=== PATIENT | male | born 1980 | race Caucasian/White ===

== ENCOUNTER → 2016-10-07 | Outpatient (CLI) | payer BC ==
[~2016-10-07] MED LIST: AMOX400S3 PO; CYCL10TA6 PO; HYDR1SOL10 PO; LANS30CA63 PO; MAGIC1 PO; METH4PAK PO; OPTIRAY 320 IV PRN; OXYC1TAB3 PO; PRED15SO PO; SERT50TA PO
--- NOTE | 2016-10-07 16:49 | DIAGNOSTIC IMAGING REPORT ---
CT soft tissue neck SOFT TISSUE NECK COMBO CLINICAL HISTORY: HX TONSIL STONES pain. Dysphagia. TECHNIQUE: Transaxial acquisition pre and post intravenous contrast enhancement. Multi axial reformatted images. COMPARISON STUDY: None FINDINGS: Unenhanced study shows no abnormal calcifications. The salivary glands appear symmetric. Postcontrast images demonstrate uniform enhancement characteristics of the parotid as well as submandibular glands. There is no significant cervical adenopathy. Sternocleidomastoid musculature is symmetric. Glottic and subglottic regions are unremarkable. IMPRESSION: Normal study Electronically signed by: Daljit Smyth M.D. 10/07/2016 4:47 PM Dictated Date/Time: 10/07/2016 4:44 PM
== END | disposition home or self-care (01) ==
LOC: C.CTS 16:17
PROVIDERS: ATTEND Internal Medicine Gastroenterology
DX: Z68.28 Body mass index [BMI] 28.0-28.9, adult (principal); M54.2 Cervicalgia

== ENCOUNTER 2016-10-17 15:42 | Emergency (ER) | payer OTHER, BC ==
[~2016-10-17] VITALS: Ht 182.9 cm; Wt 91.7 kg
[2016-10-17 15:56] VITALS: TEMP 36.9; Ht 182.9 cm; Wt 91.7 kg
[2016-10-17] MEDS ORDERED: MoRPHine SULFATE 4 MG/ML 1 ML CARP\\VIAL IV STA (16:25)
[2016-10-17] MEDS ORDERED: ONDANSETRON INJ 2 MG/ML 2 ML VIAL IV STA (16:25)
[2016-10-17] MEDS ORDERED: LANS30CA63 PO (17:12)
[2016-10-17 17:18] LABS: BASO % 0.4 %; BASO ABS # 0.04 K/uL (0-0.2); COMPLETE YES; EOS % 0.7 %; HEMATOCRIT 48.7 % (42-52); IG% 0.3 %; LYMPH ABS # 2.89 K/uL (1.2-3.4); MEAN CORPUSCULAR HEMOGLOBIN 29.8 pg (25-34); MEAN CORPUSCULAR HGB CONC 35.1 g/dl (32-36); MEAN PLATELET VOLUME 10.7 fL (7.4-10.4); MONO % 7.5 %; NEUT % 59.1 %; PLATELET COUNT 207 K/uL (130-400); RED BLOOD COUNT 5.73 M/uL (4.7-6.1); WHITE BLOOD COUNT 9.03 K/uL (4.8-10.8)
[2016-10-17 17:19] LABS: BUN/CREATININE RATIO 9.9 (10-20); CALCIUM 9.2 mg/dl (8.5-10.1); POTASSIUM 3.6 mmol/L (3.5-5.1)
--- NOTE | 2016-10-17 17:49 | EMERGENCY ROOM VISIT NOTE ---
History First contact with patient: 16:14 Chief Complaint: SHOULDER PAIN Stated Complaint: INJURED SHOULDER - SHARP PAINS History of Present Illness The patient is a 36 year old male who presents to the Emergency Room via private vehicle with complaints of "injured shoulder, sharp pains". The patient states that he was at work earlier today, and a doorframe began to fall and he reached out to catch it around 8:30 AM he felt a pull in the left shoulder/neck. He states that he has had neck ailments since a previous injury. He had an MRI performed last week. He follows with Dr. Gaines, and [facility], and is to follow-up with Dr. Boles of pain management/ autism specialist. He rates the pain as a 10/10 in the left trapezius region extending into the left shoulder, left pectoralis major region and into the left scapular region. The patient is left-handed. He also notes that from his bicep on the left to his finger is numb. He notes the pain is sharp in nature. Review of Systems A complete 10-point Review of Systems was discussed with the patient, with pertinent positives and negatives listed in the History of Present Illness. All remaining Review of Systems questions can be considered negative unless otherwise specified. Past Medical/Surgical History Medical Problems: (1) Gastroesophageal reflux disease (2) sinus surgery Family History Patient reports no known family medical history. Social History Smoking Status: Never Smoker Alcohol Use: none Drug Use: none Marital Status: Housing Status: lives with significant other Occupation Status: employed Current/Historical Medications Scheduled Cyclobenzaprine Hcl (Flexeril), 10 MG PO TID Lansoprazole (Prevacid), 30 MG PO DAILY Methylprednisolone (Medrol Dosepak), 0 PO DAILY Scheduled PRN Oxycodone Ir (Roxicodone Ir), 1-2 TAB PO Q4H PRN for Pain Allergies Coded Allergies: No Known Allergies (Unverified , 04/10/15) Physical Exam Vital Signs Date Time Temp Pulse Resp B/P Pulse Ox O2 Delivery O2 Flow Rate FiO2 10/17/16 19:45 60 18 129/80 95 10/17/16 18:32 60 16 144/84 95 Room Air 10/17/16 17:45 60 16 136/84 96 Room Air 10/17/16 15:56 36.9 83 16 98 Room Air Physical Exam VITAL SIGNS - Vital signs and nursing notes were reviewed. Afebrile, nontoxic tachycardic and is saturating well on room air 98%. GENERAL -36-year-old male appearing his stated age who is in no acute distress. Communicates well with provider and answers questions appropriately. SKIN - Without rashes. No petechial rashes. HEAD - NC/AT. NECK - Neck with FROM. There is no C-spine tenderness. There is tenderness to palpation overlying the left superior trapezius muscle extending to the left shoulder and on the medial aspect of the left scapula. There is also tenderness extending into the left pectoralis major region. This is reproducible with palpation. LUNGS - Chest wall symmetric without accessory muscle use, intercostals retractions, or central cyanosis. Normal vesicular breath sounds CTA B/L. No wheezes, rales, or rhonchi appreciated. CARDIAC - RRR with S1/S2. No murmur, rubs, or gallops appreciated. EXTREMITIES - No clubbing or peripheral cyanosis. No pretibial edema present. Patient is vascularly intact in left upper extremity. He has decreased rehab aid strength on the left compared to right. He has diminished bicipital reflex on the left. Medical Decision & Procedures Laboratory Results 10/17/16 16:49 Red Blood Count 5.73, Mean Corpuscular Volume 85.0, Mean Corpuscular Hemoglobin 29.8, Mean Corpuscular Hemoglobin Concent 35.1, Mean Platelet Volume 10.7, Neutrophils (%) (Auto) 59.1, Lymphocytes (%) (Auto) 32.0, Monocytes (%) (Auto) 7.5, Eosinophils (%) (Auto) 0.7, Basophils (%) (Auto) 0.4, Neutrophils # (Auto) 5.33, Lymphocytes # (Auto) 2.89, Monocytes # (Auto) 0.68, Eosinophils # (Auto) 0.06, Basophils # (Auto) 0.04 10/17/16 16:49 Test 10/17/16 16:49 10/17/16 16:51 White Blood Count 9.03 K/uL (4.8-10.8) Red Blood Count 5.73 M/uL (4.7-6.1) Hemoglobin 17.1 g/dL (14.0-18.0) Hematocrit 48.7 % (42-52) Mean Corpuscular Volume 85.0 fL (80-100) Mean Corpuscular Hemoglobin 29.8 pg (25-34) Mean Corpuscular Hemoglobin Concent 35.1 g/dl (32-36) Platelet Count 207 K/uL (130-400) Mean Platelet Volume 10.7 fL (7.4-10.4) Neutrophils (%) (Auto) 59.1 % Lymphocytes (%) (Auto) 32.0 % Monocytes (%) (Auto) 7.5 % Eosinophils (%) (Auto) 0.7 % Basophils (%) (Auto) 0.4 % Neutrophils # (Auto) 5.33 K/uL (1.4-6.5) Lymphocytes # (Auto) 2.89 K/uL (1.2-3.4) Monocytes # (Auto) 0.68 K/uL (0.11-0.59) Eosinophils # (Auto) 0.06 K/uL (0-0.5) Basophils # (Auto) 0.04 K/uL (0-0.2) RDW Standard Deviation 39.3 fL (36.4-46.3) RDW Coefficient of Variation 12.7 % (11.5-14.5) Immature Granulocyte % (Auto) 0.3 % Immature Granulocyte # (Auto) 0.03 K/uL (0.00-0.02) Anion Gap 6.0 mmol/L (3-11) Est Creatinine Clear Calc Drug Dose 112.1 ml/min Estimated GFR () 111.7 Estimated GFR (Non- 96.4 BUN/Creatinine Ratio 9.9 (10-20) Calcium Level 9.2 mg/dl (8.5-10.1) Bedside D-Dimer 117 ng/mlFEU (0-450) Bedside Troponin I 0.000 ng/ml (0-0.045) Medications Administered Medications (Trade) Dose Ordered Sig/Ida Route Start Time Stop Time Status Last Admin Dose Admin Morphine Sulfate (MoRPHine SULFATE INJ) 4 mg NOW STAT IV 10/17/16 16:25 10/17/16 16:28 DC 10/17/16 16:51 4 MG Ondansetron HCl (Zofran Inj) 4 mg NOW STAT IV 10/17/16 16:25 10/17/16 16:28 DC 10/17/16 16:51 4 MG Ketorolac Tromethamine (Toradol Inj) 30 mg NOW STAT IV 10/17/16 18:00 10/17/16 18:02 DC 10/17/16 18:30 30 MG Dexamethasone Sodium Phosphate (Decadron Inj) 10 mg NOW STAT IV 10/17/16 18:00 10/17/16 18:02 DC 10/17/16 18:30 10 MG Oxycodone HCl (Roxicodone Immediate Rel 5MG Home Pack) 1 homepack UD STAT PO 10/17/16 18:55 10/17/16 18:57 DC 10/17/16 19:48 1 HOMEPACK Cyclobenzaprine HCl (FLEXERIL 10MG Home Pack) 1 homepack UD STAT PO 10/17/16 18:55 10/17/16 18:57 DC 10/17/16 19:48 [facility] Patient was seen and evaluated as above. After obtaining a thorough history and physical examination IV access was initiated and the above workup was performed. I elected to obtain IV access as the patient noted that he was experiencing left anterior chest pain and left scapular pain which began after the initial injury. I suspect that this is all related to the left trapezius however I believe that workup is pertinent. He was given morphine and Zofran for his pain. CBC reveals no leukocytosis or anemia. D-dimer negative. CMP reveals point care troponin of 0, and otherwise unremarkable study. He recently had an MRI, and although I didn't believe an MRI would be beneficial at this time the patient noted that he cannot use a closed MRI as he is very claustrophobic, and even medication is not beneficial to help and sedation. I offered this to him many times and stated that I thought it be beneficial but he declined the MRI. I did elect to discuss the case with the attending, and subsequently the on-call autism specialist for [facility]. I spoke with Dimple Ruff at 5:11 PM on 10/17/2016. We discussed the case, and she recommended that I reevaluate the patient after providing him pain medication to identify of his strength and reflexes improved. We also discussed an MRI may be obtained. I reevaluated the patient after the medication and his strength did improve, specifically his rehab aid strength, and his left bicipital reflex returned normal. I suspect that the weakness was likely secondary to guarding from the pain. I then discussed the case with my attending and called Dimple Speedy again as the patient noted he was unable to have a closed MRI. We discussed that the patient is likely nonsurgical at this time, and is likely an acute exacerbation of his chronic neck pain. I do believe he can follow-up in the outpatient setting, and if a repeat MRI needs to be obtained at that time it may be done by do not believe that be beneficial at this time. His neurologic deficits improved with pain medication, and I do not suspect any true neurologic emergency at this time. The patient declined MRI. The patient was given warfarin and Zofran followed by Toradol for his pain. He did note some relief of this pain. He was discharged home with a prescription for Medrol Dosepak which was recommended by Lucrecia Speedy, he was also provided Flexeril and pain medication, specifically oxycodone immediate release. He has no allergies. He is to follow-up with Dr. Boles, and is to call their office to request sooner follow-up. He was instructed to return if weakness would persist or worsen. He was educated upon worrisome symptoms return, had questions prior to discharge and was discharged home in good condition. He is to call his workman's compensation individual regarding today's visit further evaluation and management. I informed the patient that I would not be able to clear him to go back to work. EKG normal sinus rhythm. In evaluation treatment this patient the following differential diagnoses were entertained: ME, PE, left shoulder pain, strain of the trapezius, acute on chronic left shoulder pain, among others. Impression Primary Impression: Trapezius strain Additional Impression: Left shoulder pain Departure Information Dispostion Home / Self-Care Condition GOOD Prescriptions Methylprednisolone (MEDROL DOSEPAK) 4 Mg Pramod 0 PO DAILY, #1 PKT Prov: Damien Gama PA-C 10/17/16 Cyclobenzaprine Hcl (FLEXERIL) 10 Mg Tab 10 MG PO TID for 5 Days, #15 TAB Prov: Damien aGma PA-C 10/17/16 Oxycodone Ir (Roxicodone Ir) 5 Mg Tab 1-2 TAB PO Q4H Y for Pain, #15 TAB For Initial Treatment Prov: Damien Gama PA-C 10/17/16 Referrals Daljit Vickers M.D. (PCP) Patient Instructions My [facility] Additional Instructions You have been treated in the Emergency Department for Shoulder Pain. You have received pain medicine in the emergency department which impairs your ability to operate a vehicle. It is illegal for you to drive after receiving these medicines. You have been prescribed OxyIR to be used for pain control. This is a narcotic medication. You cannot drive or consume alcohol while on this medicine. This medicine should only be used for pain that cannot be controlled with over-the- counter pain medicines. You have been prescribed a Medrol Dosepak. Take this medication as prescribed. You should take the COMPLETE 6-day course of this medication. This is an anti- inflammatory medicine that will help to minimize your symptoms. You have been prescribed Flexeril (cyclobenzaprine) 1 tabs orally, three times per day. Do NOT exceed 30 mg (6 tabs) per day. Take your first dose at bedtime as it can make you drowsy. Always take all medications as prescribed. For pain control, you can use the following [id number] medicines (if >12 yo): - Regular strength (325mg/tab) Tylenol (acetaminophen) 2 tabs every 4-6 hours as needed. Do not exceed 12 tablets in a 24 hour period. Avoid taking more than 3 grams (3000 mg) of Tylenol per day. This includes any other sources of acetaminophen you may take on a regular basis. - Regular strength (200 mg/tab) Advil (ibuprofen) 1-2 tabs every 4-6 hours as needed. Do not exceed a dose of 3200 mg per day. If this is a recent injury (<24 hrs), ice can be applied to the area of pain for the first 3 days to help decrease pain and inflammation. Please call your employer to discuss follow-up with the Workmen's Compensation individual for clearance to return to work. Please call Dr. Boles, the pain management autism specialist you're to follow up with in the beginning of October first thing Thursday morning. Please call them to request sooner follow-up. Please return here if worsening of your symptoms. Return to the Emergency Department if your current symptoms worsen despite treatment course outlined above, or if you develop any of the following symptoms : intractable pain despite aforementioned treatment course or new onset of numbness or tingling of the arm. Please return to the emergency department with any new/concerning symptoms or worsening of your numbness/tingling as we discussed. Thank you for your time. Problem Qualifiers
[2016-10-17] MEDS ORDERED: KETOROLAC TROMETHAMINE 30 MG/ML VIAL IV STA (18:00)
[2016-10-17] MEDS ORDERED: DEXAMETHASONE SOD INJ 10 MG/ML VIAL IV STA (18:00)
[2016-10-17] MEDS ORDERED: FLEXERIL HOME PACK 10 MG VIAL PO STA (18:55)
[2016-10-17] MEDS ORDERED: OXYCODONE IR HOME PACK PO STA (18:55)
[2016-10-17] MEDS ORDERED: CYCL10TA6 PO (18:58)
[2016-10-17] MEDS ORDERED: OXYC1TAB3 PO (18:58)
[2016-10-17] MEDS ORDERED: METH4PAK PO (18:58)
[2016-10-17 19:45] VITALS: BP 129/80; PULSE 60; O2SAT 95
[2016-11-07] MEDS ORDERED: SERT50TA PO (07:01)
== END 2016-10-17 19:53 | disposition home or self-care (01) ==
LOC: C.EDB 15:42 → C.EDD 19:53
DX: S46.912A Strain of unspecified muscle, fascia and tendon at shoulder and upper arm level, left arm, initial encounter (principal); X58.XXXA Exposure to other specified factors, initial encounter; K21.9 Gastro-esophageal reflux disease without esophagitis; Z79.899 Other long term (current) drug therapy; Z98.890 Other specified postprocedural states

== ENCOUNTER → 2016-11-04 | Outpatient (CLI) | payer OTHER, BC ==
[~2016-11-04] MED LIST changes: -CYCL10TA6 PO; -METH4PAK PO; -OPTIRAY 320 IV PRN; -OXYC1TAB3 PO
--- NOTE | 2016-11-04 12:45 | DIAGNOSTIC IMAGING REPORT ---
CERVICAL SPINE MRI HISTORY: Cervical radiculopathy. CERVICAL RADICULOPATHY/PT WILL HAVE DONN VAN TECHNIQUE: Multiplanar multisequence MRI of the cervical spine was performed without the use of contrast. COMPARISON STUDY: None. FINDINGS: Signal characteristics of the vertebral bodies as well as intervertebral this are unremarkable. Signal characteristics of the cervical cord are unremarkable. C2-C3: No significant central canal or neural foraminal narrowing. C3-C4: No significant central canal or neural foraminal narrowing. C4-C5: No significant central canal or neural foraminal narrowing. C5-C6: No significant central canal or neural foraminal narrowing. C6-C7: No significant central canal or neural foraminal narrowing. C7-T1: No significant central canal or neural foraminal narrowing. IMPRESSION: Normal study Electronically signed by: Daljit Smyth M.D. 11/04/2016 12:43 PM Dictated Date/Time: 11/04/2016 12:42 PM
== END | disposition home or self-care (01) ==
LOC: C.MRIBC 11:37
PROVIDERS: ATTEND Pain Medicine Interventional Pain Medicine
DX: M54.2 Cervicalgia (principal)

== ENCOUNTER → 2016-11-04 | Outpatient (CLI) | payer BC, OTHER ==
[2016-11-04 17:15] LABS: BASO % 0.9 %; BASO ABS # 0.06 K/uL (0-0.2); COMPLETE YES; EOS % 1.3 %; HEMATOCRIT 46.3 % (42-52); IG% 0.3 %; LYMPH % 35.4 %; LYMPH ABS # 2.44 K/uL (1.2-3.4); MEAN CELL VOLUME 87.9 fL (80-100); MEAN CORPUSCULAR HEMOGLOBIN 28.8 pg (25-34); MEAN CORPUSCULAR HGB CONC 32.8 g/dl (32-36); MEAN PLATELET VOLUME 11.2 fL (7.4-10.4); MONO % 9.3 %; NEUT % 52.8 %; PLATELET COUNT 236 K/uL (130-400); RED BLOOD COUNT 5.27 M/uL (4.7-6.1); WHITE BLOOD COUNT 6.89 K/uL (4.8-10.8)
[2016-11-04 17:21] LABS: POTASSIUM 4.3 mmol/L (3.5-5.1)
[2016-11-04 17:23] LABS: PARTIAL THROMBOPLASTIN RATIO 1.1; PROTHROMBIN TIME (PATIENT) 10.7 SECONDS (9.0-12.0)
== END | disposition home or self-care (01) ==
LOC: C.LABBC 11:44
DX: Z01.818 Encounter for other preprocedural examination (principal)

== ENCOUNTER 2016-11-07 20:29 | Emergency (ER) | payer BC, OTHER ==
[~2016-11-07] VITALS: Ht 182.9 cm; Wt 92.9 kg
[~2016-11-07 20:29] MED LIST changes: -ACETAMINOPHEN/HYDROCODONE ELIX 15 ML/CUP UDP ONE; -ACETAMINOPHEN/HYDROCODONE ELIX 15 ML/CUP UDP PO PRN; -AMOX400S3 PO; -ATROPINE SULFATE 0.1 MG/ML 5ML SYR IV PRN; -BACITRACIN/POLYMYX B OPH OINT 3.5 GM TUBE ONE; -BACITRACIN/POLYMYXIN B OINT 15 GM TUBE EXT ONE; -DEXAMETHASONE SOD INJ 4 MG/ML VIAL ONE; -EpHEDrine SULFATE INJ 50 MG/ML AMP IV PRN; -FENTANYL CITRATE INJ 50 MCG/1 ML 2 ML VIAL ONE; -HYDR1SOL10 PO; -LACTATED RINGER'S 1000ML 1,000 ML IV SCH; -LIDOCAINE 2% JELLY 5 ML TUBE EXT ONE; -LIDOCAINE HCL 2% 2 ML VIAL (20MG/ML) ONE; -MAGIC1 PO; -ONDANSETRON INJ 2 MG/ML 2 ML VIAL IV PRN; -ONDANSETRON INJ 2 MG/ML 2 ML VIAL ONE; -PRED15SO PO; -PROPOFOL IV EMULSION 10 MG/ML 20 ML VIAL IV ONE; -SUCCINYLCHOLINE CHLORIDE 20 MG/ML 10 ML VIAL IV ONE
[2016-11-07 20:31] VITALS: TEMP 36.9; Ht 182.9 cm; Wt 92.9 kg
[2016-11-07] MEDS ORDERED: SODIUM CHLORIDE 0.9% 1000ML 1,000 ML IV STA (21:06)
--- NOTE | 2016-11-07 21:10 | EMERGENCY ROOM VISIT NOTE ---
History Report prepared by Michelle: Huan Miranda Under the Supervision of: Dr. Harpal Garza D.O. First contact with patient: 20:56 Chief Complaint: THROAT PAIN/INJURY Stated Complaint: TONSILECTOMY TODAY,CAN'T SWALLOW,PAIN History of Present Illness The patient is a 36 year old male who presents to the Emergency Room with complaints of persistent throat pain that started earlier today. The patient had a tonsillectomy this morning and has been having worsening discomfort since the procedure. The patient states that he is having difficulty speaking, swallowing, eating and drinking. He notes he has not been able to take his medications including antibiotics and Prednisone because he cannot swallow the pills. The patient denies bleeding or fevers at this time. Source of History: patient Onset: earlier today Position: throat Timing: other (persistent ) Associated Symptoms: No fevers Note: Other associated symptoms: difficulty speaking, swallowing, eating and drinking Denies: bleeding Review of Systems See HPI for pertinent positives & negatives. A total of 10 systems reviewed and were otherwise negative. Past Medical & Surgical Medical Problems: (1) Gastroesophageal reflux disease (2) sinus surgery Family History Patient reports no known family medical history. Social History Smoking Status: Never Smoker Alcohol Use: none Drug Use: none Marital Status: Housing Status: lives with significant other Occupation Status: employed Current/Historical Medications Scheduled Lansoprazole (Prevacid), 30 MG PO QAM Sertraline (Zoloft), 1 TAB PO DAILY Scheduled PRN Diphenhy/Alum/Mag/Sucralfa (Magic Swizzle - Diphenhy/Alum/Mag/Sucralfa), 1 TSP PO Q4H PRN for Pain Allergies Coded Allergies: No Known Allergies (Unverified , 11/07/16) Physical Exam Vital Signs Date Time Temp Pulse Resp B/P Pulse Ox O2 Delivery O2 Flow Rate FiO2 11/08/16 00:02 72 18 127/72 97 11/07/16 22:06 67 18 127/77 97 Room Air 11/07/16 20:39 98 Room Air 11/07/16 20:31 36.9 69 18 140/90 96 Room Air Physical Exam GENERAL: Patient is awake alert somewhat anxious appearing and uncomfortable EYES: The conjunctivae are clear. The pupils are round and reactive. EARS, NOSE, MOUTH AND THROAT: The nose is without any evidence of any deformity. Mucous membranes are moist, there was a surgical site noted in posterior pharynx, there was good eschar at the posterior tonsillectomy bed, no bleeding was noted. There was no significant swelling. NECK: The neck is nontender and supple. RESPIRATORY: Normal respiratory effort is noted there is no evidence of wheezing rhonchi or rales CARDIOVASCULAR: Regular rate and rhythm noted there no murmurs rubs or gallops normal S1 normal S2 GASTROINTESTINAL: The abdomen is soft. Bowel sounds are present in all quadrants. Abdomen is nontender MUSCULOSKELETAL/EXTREMITIES: There is no evidence of gross deformity full range of motion is noted in the hips and shoulders SKIN: There is no obvious evidence of any rash. There are no petechiae, pallor or cyanosis noted. NEUROLOGIC: Patient is awake alert and oriented x3 Medical Decision & Procedures Laboratory Results 11/07/16 21:15 Red Blood Count 5.34, Mean Corpuscular Volume 85.6, Mean Corpuscular Hemoglobin 29.8, Mean Corpuscular Hemoglobin Concent 34.8, Mean Platelet Volume 10.4, Neutrophils (%) (Auto) 87.8, Lymphocytes (%) (Auto) 6.4, Monocytes (%) (Auto) 5.4, Eosinophils (%) (Auto) 0.0, Basophils (%) (Auto) 0.1, Neutrophils # (Auto) 12.81, Lymphocytes # (Auto) 0.93, Monocytes # (Auto) 0.79, Eosinophils # (Auto) 0.00, Basophils # (Auto) 0.01 11/07/16 21:15 Test 11/07/16 21:15 White Blood Count 14.58 K/uL (4.8-10.8) Red Blood Count 5.34 M/uL (4.7-6.1) Hemoglobin 15.9 g/dL (14.0-18.0) Hematocrit 45.7 % (42-52) Mean Corpuscular Volume 85.6 fL (80-100) Mean Corpuscular Hemoglobin 29.8 pg (25-34) Mean Corpuscular Hemoglobin Concent 34.8 g/dl (32-36) Platelet Count 243 K/uL (130-400) Mean Platelet Volume 10.4 fL (7.4-10.4) Neutrophils (%) (Auto) 87.8 % Lymphocytes (%) (Auto) 6.4 % Monocytes (%) (Auto) 5.4 % Eosinophils (%) (Auto) 0.0 % Basophils (%) (Auto) 0.1 % Neutrophils # (Auto) 12.81 K/uL (1.4-6.5) Lymphocytes # (Auto) 0.93 K/uL (1.2-3.4) Monocytes # (Auto) 0.79 K/uL (0.11-0.59) Eosinophils # (Auto) 0.00 K/uL (0-0.5) Basophils # (Auto) 0.01 K/uL (0-0.2) RDW Standard Deviation 39.6 fL (36.4-46.3) RDW Coefficient of Variation 12.7 % (11.5-14.5) Immature Granulocyte % (Auto) 0.3 % Immature Granulocyte # (Auto) 0.04 K/uL (0.00-0.02) Anion Gap 6.0 mmol/L (3-11) Est Creatinine Clear Calc Drug Dose 112.1 ml/min Estimated GFR () 111.7 Estimated GFR (Non- 96.4 BUN/Creatinine Ratio 15.0 (10-20) Calcium Level 9.3 mg/dl (8.5-10.1) Total Bilirubin 0.6 mg/dl (0.2-1) Direct Bilirubin 0.2 mg/dl (0-0.2) Aspartate Amino Transf (AST/SGOT) 7 U/L (15-37) Alanine Aminotransferase (ALT/SGPT) 34 U/L (12-78) Alkaline Phosphatase 63 U/L (45-117) Total Protein 7.3 gm/dl (6.4-8.2) Albumin 4.3 gm/dl (3.4-5.0) Laboratory results per my review. Medications Administered Medications (Trade) Dose Ordered Sig/Ida Route Start Time Stop Time Status Last Admin Dose Admin Sodium Chloride (Nss 1000ml) 1,000 ml @ 999 mls/hr Q1H1M STAT IV 11/07/16 21:06 11/07/16 22:06 DC 11/07/16 21:16 999 MLS/HR Morphine Sulfate (MoRPHine SULFATE INJ) 4 mg Q15M PRN IV 11/07/16 21:15 11/21/16 21:14 11/07/16 21:17 4 MG Ondansetron HCl (Zofran Odt) 4 mg ONE ONCE PO 11/07/16 21:15 11/07/16 21:16 DC 11/07/16 21:17 4 MG Dexamethasone Sodium Phosphate (Decadron Inj) 10 mg NOW ONCE IV 11/07/16 21:15 11/07/16 21:16 DC 11/07/16 21:16 10 MG Acetaminophen/ Hydrocodone Bitart (Lortab Elixir) 15 ml NOW STAT PO 11/07/16 22:54 11/07/16 22:56 DC 11/07/16 23:15 15 ML ED Course 2103: The patient was evaluated in room A10. A complete history and physical examination were performed. 2105: Ordered NSS 1000 ml @ 999 mls/hr IV. 2114: Ordered Decadron Inj 10 mg IV, Zofran Odt 4 mg PO, Morphine Sulfate 4 mg IV. 2247: At this time, I reevaluated the patient and he was not feeling any better. 2253: Ordered Lortab Elixir 15 ml PO. 2: Upon reevaluation, the patient is resting more comfortably. I discussed the results and treatment plan with him. He verbalized agreement of the treatment plan. The patient was discharged home. Medical Decision Differential diagnosis: Etiologies such as post-op bleeding, post-op pain, viral syndrome, tonsillitis, streptococcal pharyngitis, mononucleosis, peritonsillar abscess, retropharyngeal abscess, otitis, pneumonia, influenza, as well as others were entertained. Nursing notes reviewed. The patient is a 36-year-old male who presented to the emergency department for evaluation of throat pain. The patient had his tonsils out recently. He had a good eschar noted over the post tonsillectomy bed. He also did not have any bleeding or significant swelling. The patient was able to tolerate his secretions. He was treated with IV fluids IV pain medicine as well as magic's wasn't. I discussed the patient's laboratory results with him. He is still one day status post tonsillectomy and I do feel that his pain at this time can be managed as an outpatient. He was encouraged to rest and avoid any strenuous activity. He was also encouraged to continue all medications as prescribed. He was also encouraged to follow-up with his primary your nose and throat physician tomorrow by phone return to the emergency department immediately symptoms change worsen or the need arises. Impression Primary Impression: Post-op pain Scribe Attestation The scribe's documentation has been prepared under my direction and personally reviewed by me in its entirety. I confirm that the note above accurately reflects all work, treatment, procedures, and medical decision making performed by me. Departure Information Dispostion Home / Self-Care Prescriptions Diphenhy/Alum/Mag/Sucralfa (Magic Swizzle - Diphenhy/Alum/Mag/Sucralfa) Susp 1 TSP PO Q4H Y for Pain, #200 ML 1 Refill 30ML DIPHENHYDRAMINE SLN 12.5/5ML 60ML MAALOX 4GM CARAFATE SWISH AND SPIT Prov: Harpal Garza, DO 11/07/16 Referrals No Doctor, Assigned (PCP) Forms HOME CARE DOCUMENTATION FORM, IMPORTANT VISIT INFORMATION, WORK / SCHOOL INSTRUCTIONS Patient Instructions [facility], Tonsillectomy Adenoidectomy After Additional Instructions Call the ear nose throat physician in the morning to schedule a follow-up appointment. Continue all medications as prescribed. Return to the emergency department immediately if symptoms change worsen or the need arises.
[2016-11-07] MEDS ORDERED: ONDANSETRON 4MG OD TAB PO ONE (21:15)
[2016-11-07] MEDS ORDERED: MoRPHine SULFATE 4 MG/ML 1 ML CARP\\VIAL IV PRN (21:15)
[2016-11-07] MEDS ORDERED: DEXAMETHASONE SOD INJ 10 MG/ML VIAL IV ONE (21:15)
[2016-11-07 21:22] LABS: BASO % 0.1 %; BASO ABS # 0.01 K/uL (0-0.2); COMPLETE YES; HEMATOCRIT 45.7 % (42-52); IG% 0.3 %; LYMPH % 6.4 %; LYMPH ABS # 0.93 K/uL (1.2-3.4); MEAN CELL VOLUME 85.6 fL (80-100); MEAN CORPUSCULAR HEMOGLOBIN 29.8 pg (25-34); MEAN CORPUSCULAR HGB CONC 34.8 g/dl (32-36); MEAN PLATELET VOLUME 10.4 fL (7.4-10.4); MONO % 5.4 %; NEUT % 87.8 %; PLATELET COUNT 243 K/uL (130-400); RED BLOOD COUNT 5.34 M/uL (4.7-6.1); WHITE BLOOD COUNT 14.58 K/uL (4.8-10.8)
[2016-11-07 21:40] LABS: CALCIUM 9.3 mg/dl (8.5-10.1); POTASSIUM 4.2 mmol/L (3.5-5.1)
[2016-11-07] MEDS ORDERED: MAGIC SWIZZLE PO STA (22:54)
[2016-11-07] MEDS ORDERED: ACETAMINOPHEN/HYDROCODONE ELIX 15 ML/CUP UDP PO STA (22:54)
[2016-11-07] MEDS ORDERED: MAGIC MOUTHWASH PO PRN (23:45)
[2016-11-07] MEDS ORDERED: MAGIC1 PO (23:49)
[2016-11-08 00:02] VITALS: BP 127/72; PULSE 72; O2SAT 97
== END 2016-11-08 00:03 | disposition home or self-care (01) ==
LOC: C.EDB 20:29 → C.EDA 11-08 00:03
DX: G89.18 Other acute postprocedural pain (principal); Z90.89 Acquired absence of other organs; K21.9 Gastro-esophageal reflux disease without esophagitis; Z98.890 Other specified postprocedural states; Z79.899 Other long term (current) drug therapy

== ENCOUNTER → 2016-11-07 | Day surgery (SDC) | payer BC, OTHER ==
[2016-10-29 13:20] VITALS: Ht 182.9 cm; Wt 93.2 kg
[~2016-11-07] VITALS: Ht 182.9 cm; Wt 93.2 kg
[~2016-11-07] MED LIST changes: +ACETAMINOPHEN/HYDROCODONE ELIX 15 ML/CUP UDP ONE; +ACETAMINOPHEN/HYDROCODONE ELIX 15 ML/CUP UDP PO PRN; +ATROPINE SULFATE 0.1 MG/ML 5ML SYR IV PRN; +BACITRACIN/POLYMYX B OPH OINT 3.5 GM TUBE ONE; +BACITRACIN/POLYMYXIN B OINT 15 GM TUBE EXT ONE; +DEXAMETHASONE SOD INJ 4 MG/ML VIAL ONE; +EpHEDrine SULFATE INJ 50 MG/ML AMP IV PRN; +FENTANYL CITRATE INJ 50 MCG/1 ML 2 ML VIAL ONE; +LACTATED RINGER'S 1000ML 1,000 ML IV SCH; +LIDOCAINE 2% JELLY 5 ML TUBE EXT ONE; +LIDOCAINE HCL 2% 2 ML VIAL (20MG/ML) ONE; +ONDANSETRON INJ 2 MG/ML 2 ML VIAL IV PRN; +ONDANSETRON INJ 2 MG/ML 2 ML VIAL ONE; +PROPOFOL IV EMULSION 10 MG/ML 20 ML VIAL IV ONE; +SUCCINYLCHOLINE CHLORIDE 20 MG/ML 10 ML VIAL IV ONE
--- NOTE | 2016-11-07 07:45 | History & Physical Bridge - SC ---
H&P Re-Evaluation Bridge Note: I have examined the patient, reviewed the History & Physical and in the interval since the performance of the History & Physical I have noted the following changes of clinical significance: No changes noted
--- NOTE | 2016-11-07 08:29 | [facility] Operative Report ---
Operative Report Operative Date November 07, 2016. Pre-Operative Diagnosis Chronic Tonsillitis Post-Operative Diagnosis Same Procedure(s) Performed Tonsillectomy Surgeon Dr. Kay Badger Distiller Operator Surgeon(s) None Estimated Blood Loss 0 ml Findings 1. 2+ CRYPTIC TONSILS WITH TONSILLITHS R>L Specimens A.) Right Tonsil B.) Left Tonsil I attest to the content of the Intraoperative Record and any orders documented therein. Any exceptions are noted below.
--- NOTE | 2016-11-07 08:31 | Discharge Instructions ---
Discharge Instructions Date of Service November 07, 2016. Admission Reason for Admission: Chronic Tonsillitis Discharge Discharge Diagnosis / Problem: SAME Discharge Goals Goal(s): Therapeutic intervention Activity Recommendations Activity Limitations: as noted below LIGHT ACTIVITY FOR 2WEEKS; NO DRIVING WHILE ON LORTAB . Current Hospital Diet Patient's current hospital diet: Full Liquid Diet Discharge Diet Recommended Diet: Full Liquid Diet Diet Texture: Mechanical Soft (ground) Procedures Procedures Performed: Tonsillectomy Pending Studies Studies pending at discharge: no Medical Emergencies . Who to Call and When: Medical Emergencies: If at any time you feel your situation is an emergency, please call 911 immediately. . Non-Emergent Contact Non-Emergency issues call your: Surgeon . . "Provider Documentation" section prepared by Russell Kay. . VTE Core Measure Inpt VTE Proph given/why not?: SCD's
[2016-11-07] MEDS: FENTANYL CITRATE INJ 50 MCG/1 ML 2 ML VIAL IV PRN ×2 (09:02→09:13)
--- NOTE | 2016-11-07 09:10 | Anesthesia Progress Nt - [facility] ---
Anesthesia Post Op Note Date & Time November 07, 2016 at 09:10 Vital Signs Vital Signs Past 12 Hours Date Time Temp Pulse Resp B/P Pulse Ox O2 Delivery O2 Flow Rate FiO2 11/07/16 08:48 37.5 71 16 170/119 99 Humidified Oxygen 6 Mask 11/07/16 07:01 36.8 60 20 145/94 99 Room Air Notes Mental Status: alert / awake / arousable, participated in evaluation Pt Amnestic to Procedure: Yes Nausea / Vomiting: adequately controlled Pain: adequately controlled Airway Patency, RR, SpO2: stable & adequate BP & HR: stable & adequate Hydration State: stable & adequate Anesthetic Complications: no major complications apparent
[2016-11-07 09:50] VITALS: TEMP 36.7
[2016-11-07 10:15] VITALS: BP 125/73; PULSE 58; O2SAT 95
--- NOTE | 2016-11-07 10:19 | OPERATIVE REPORT ---
DATE OF OPERATION: 11/07/2016 PREOPERATIVE DIAGNOSIS: Chronic tonsillitis. POSTOPERATIVE DIAGNOSIS: Chronic tonsillitis. PROCEDURE: Bilateral tonsillectomy. SURGEON: Dr. Kay. ANESTHESIA: General endotracheal. ESTIMATED BLOOD LOSS: Zero. FINDINGS: 1. A 2+ cryptic endophytic tonsils bilaterally with right greater than left tonsillith formation. SPECIMENS: Right and left tonsil sent separately for permanent pathologic specimen. COMPLICATIONS: None. INDICATIONS FOR THE PROCEDURE: The patient is a pleasant 36-year-old male with a history of chronic tonsillitis who presents for the above-mentioned procedure on an outpatient elective basis. DESCRIPTION OF PROCEDURE: After informed consent had been obtained from the patient, the patient was wheeled to the operating room and placed on the operating table in the supine position. Monitors were placed. After induction of general endotracheal anesthesia, the table was turned 90 degrees and the patient's head and neck were gently extended. Antibiotic ointment was applied to the lips and a mouth gag was carefully inserted, opened, stabilized on rolled towels. The palate was inspected and this was found to be normal. An Allis clamp was used to grasp the right tonsil in the superior pole and Bovie electrocautery was used to remove the tonsil in the capsular plane with care to preserve the underlying mucosa and musculature of the anterior and posterior tonsillar pillars. The left tonsil was then removed in a similar fashion. Intraoperative findings were of 2+ cryptic endophytic tonsils bilaterally with right greater than left tonsillith formation. These were sent off separately for permanent pathologic assessment. The mouth gag was then released for 1 minute. This was reopened and hemostasis was confirmed. An orogastric tube was placed and stomach was suctioned free of air and stomach contents. 2% lidocaine jelly was placed into the bilateral tonsillar fossae for added anesthetic effect. This marked the end of the case. The patient tolerated the procedure well. There were no apparent complications. The patient was extubated and transferred to recovery room in stable condition. I attest to the content of the Intraoperative Record and any orders documented therein. Any exceptio ns are noted below.
== END | disposition home or self-care (01) ==
LOC: X.SURG 06:34
DX: J35.01 Chronic tonsillitis (principal); J03.90 Acute tonsillitis, unspecified; Z98.890 Other specified postprocedural states; K21.9 Gastro-esophageal reflux disease without esophagitis

== ENCOUNTER 2016-11-16 11:28 | Emergency (ER) | payer BC, OTHER ==
[~2016-11-16] VITALS: Ht 182.9 cm; Wt 88.2 kg
[~2016-11-16 11:28] MED LIST changes: +MAGIC1 PO
[2016-11-16 11:32] VITALS: BP 150/106; PULSE 102; TEMP 36.5; O2SAT 98; Ht 182.9 cm; Wt 88.2 kg
[2016-11-16] MEDS ORDERED: HYDR1SOL10 PO (12:12)
[2016-11-16] MEDS ORDERED: AMOX400S3 PO (12:12)
[2016-11-16] MEDS ORDERED: PRED15SO PO (12:12)
--- NOTE | 2016-11-16 13:41 | ENT CONSULTATION ---
DATE OF CONSULTATION: 11/16/2016 EMERGENCY ROOM CONSULTATION: The patient is postoperative day #9 status post bilateral tonsillectomy for chronic tonsillitis by me who was in the Emergency Room with his today and had the onset of bleeding from the left tonsillar fossa. I informed his to send him to the front end developer javascript html css in the Emergency Room and I would be in to evaluate the patient. The patient started to gargle with ice water, which seemed to control the bleeding. He states that he has had approximately 1 tablespoon of blood loss. On examination, there was a mild ooze from the superolateral aspect of the left tonsillar fossa with no active bleeding, just mild oozing. After spraying the oral cavity and oropharynx with Cetacaine spray and allowing adequate time for anesthesia, silver nitrate cautery to the left tonsillar fossa superolaterally was performed with cessation of the oozing of blood. The patient tolerated the procedure well and there were no apparent complications. The patient can be discharged to home from the Emergency Room on his already prescribed pain medicine, antibiotics, and steroids which are finishing up soon. He has a follow-up appointment in my office tomorrow at 7:45 in the morning and should keep that appointment.
== END 2016-11-16 12:22 | disposition home or self-care (01) ==
LOC: C.EDB 11:29
DX: J95.830 Postprocedural hemorrhage of a respiratory system organ or structure following a respiratory system procedure (principal); Y84.9 Medical procedure, unspecified as the cause of abnormal reaction of the patient, or of later complication, without mention of misadventure at the time of the procedure